=== PATIENT | female | born 1950 | race Caucasian/White ===

== ENCOUNTER 2022-02-16 10:40 | Emergency (ER) | payer MEDICARE, OTHER ==
[2022-02-16 12:04] LABS: Appearance CLOUDY (CLEAR); Bilirubin NEGATIVE (NEGATIVE); Glucose 250 mg/dL (NEGATIVE)
[2022-02-16 12:05] LABS: Ketones NEGATIVE (NEGATIVE); Protein,Urine Dip 100 (Negative); RBC LARGE Ery/ul (0-5)
[2022-02-16 12:06] LABS: Dipstick done @ ? MAIN LAB; Nitrite NEGATIVE (NEGATIVE); Urobilinogen 0.2 mg/dL (0-1)
[2022-02-16 12:39] LABS: Bacteria RARE /HPF (NEGATIVE); Epithelial Cells RARE /HPF (FEW); RBC >101 /HPF (0-2); Urine Cultured Indicated? YES; WBC >100 /HPF (0-5)
[2022-02-16 13:28] VITALS: O2SAT 98
[2022-02-16 14:23] VITALS: BP 158/70; PULSE 57
--- NOTE | 2022-02-16 14:38 | XRAY ---
Indication: Left lower quadrant pain. Difficulty urinating. Multiple contiguous axial images obtained through the abdomen and pelvis without contrast. Comparison: April 11, 2019. Lung bases again demonstrates tiny left lower lobe calcified granuloma. No infiltrate or effusion. Heart not enlarged. Noncontrasted stomach and bowel loops are nonobstructed. Appendix not seen. Again scattered descending and sigmoid diverticulosis. Junction descending and sigmoid colon now demonstrates mild diverticulitis. No free fluid/air. Again partial hysterectomy and cholecystectomy. Remaining liver, pancreas, spleen, adrenal glands, kidneys, ureters, and bladder are unremarkable for noncontrast exam. Again diffuse scattered vascular calcifications without AAA. Osseous structures intact again with mild degenerative changes throughout the thoracolumbar spine. Impression: 1. Again colonic diverticulosis. New finding mild diverticulitis junction descending and sigmoid colon without complications. 2. Chronic findings including arteriosclerotic disease, degenerative spondylosis, and left lower lobe calcified granuloma.
--- NOTE | 2022-02-16 14:58 | ERPHSYRPT ---
- History of Present Illness Time Seen by Provider: 02/16/22 11:00 Historian: patient Exam Limitations: no limitations Patient Subjective Stated Complaint: Pt states "I feel like I need to go to the bathroom but I only urinate a little" Triage Nursing Assessment: Pt presented alert and oriented X 3, skin pwd Pt ambulates with an upright steady gait, able to sepak in clear full sentences. no apparent respiratory distress. Physician History: Patient is a 71-year-old female presents to emergency department for evaluation of urinary frequency. Patient just completed a course of antibiotics for urinary tract infection. Patient had a follow-up UA which was clear. Patient now experiencing UTI symptoms. Additionally patient is complaining of diarrhea and mild left lower quadrant pain. Patient has had diverticulitis in the past and is concerned that she may be experiencing diverticulitis again. No trauma. No fever. No nausea or vomiting. No rash. Symptoms are moderate in intensity. No specific worsening or improving factors. Patient voices no other complaints or concerns at this time. Timing/Duration: yesterday Activities at Onset: none Quality: burning Abdominal Pain Onset Location: LLQ Pain Radiation: no radiation, scapula Severity of Pain-Current: mild Modifying Factors: Improves With: nothing Associated Symptoms: diarrhea, No fever/chills, No nausea, No shortness of breath, No vomiting Previous symptoms: same symptoms as today Allergies/Adverse Reactions: novacain Adverse Reaction (Intermediate, Uncoded 02/16/22 10:58) heart race Home Medications: Allopurinol 300 mg [Zyloprim 300 mg] 300 mg PO DAILY 02/16/22 [History] Atenolol 50 mg [Tenormin 50 mg] 50 mg PO DAILY 02/16/22 [History] Atorvastatin Calcium [Lipitor 20MG Tablet] 20 mg PO DAILY 02/16/22 [History] Lisinopril/Hydrochlorothiazide [Lisinopril-Hctz 20-12.5 mg Tab] 1 each PO BID 02/16/22 [History] Metformin HCl 500 mg [Glucophage 500 MG] 500 mg PO BIDWM 02/16/22 [History] glipiZIDE [Glipizide ER] 1 tab PO DAILY 02/16/22 [History] Hx Tetanus, Diphtheria Vaccination/Date Given: No Hx Influenza Vaccination/Date Given: Yes Hx Pneumococcal Vaccination/Date Given: No Immunizations Up to Date: Yes Travel Risk - International Travel Have you traveled outside of the country in past 3 weeks: No - Coronavirus Screening Are you exhibiting any of the following symptoms?: No Close contact with a COVID-19 positive Pt in past 14-21 Days: No - Vaccine Status Have you recieved a Covid-19 vaccination: Yes Control Panel Assembler: Moderna - Vaccination Dates Date of 2cond Vaccination (if applicable): 2020 - Review of Systems Constitutional: No Symptoms, No Fever, No Chills Eyes: No Symptoms Ears, Nose, & Throat: No Symptoms Respiratory: No Symptoms, No Cough, No Dyspnea Cardiac: No Symptoms, No Chest Pain, No Edema, No Syncope Abdominal/Gastrointestinal: No Symptoms, No Abdominal Pain, No Nausea, No Vomiting, No Diarrhea Genitourinary Symptoms: No Symptoms, No Dysuria Musculoskeletal: No Symptoms, No Back Pain, No Neck Pain Skin: No Symptoms, No Rash Neurological: No Symptoms, No Dizziness, No Focal Weakness, No Sensory Changes Psychological: No Symptoms Endocrine: No Symptoms Hematologic/Lymphatic: No Symptoms Immunological/Allergic: No Symptoms All Other Systems: Reviewed and Negative - Past Medical History Pertinent Past Medical History: Yes Neurological History: Migraines Cardiac History: High Cholesterol, Hypertension Endocrine Medical History: Diabetes Type II - Past Surgical History Past Surgical History: Yes - Social History Smoking Status: Never smoker Exposure to second hand smoke: No Drug Use: none Patient Lives Alone: No - Nursing Vital Signs Nursing Vital Signs: Initial Vital Signs Temperature 97.6 F 02/16/22 10:52 Pulse Rate 80 02/16/22 10:52 Respiratory Rate 20 02/16/22 10:52 Blood Pressure 186/94 02/16/22 10:52 O2 Sat by Pulse Oximetry 100 02/16/22 10:52 Pain Scale Pain Intensity 0 - Physical Exam General Appearance: no apparent distress, alert Eye Exam: PERRL/EOMI, eyes nml inspection Ears, Nose, Throat Exam: normal ENT inspection, TMs normal, pharynx normal, moist mucous membranes Neck Exam: normal inspection, non-tender, supple, full range of motion Respiratory Exam: normal breath sounds, lungs clear, airway intact, No resp iratory distress Cardiovascular Exam: regular rate/rhythm, normal heart sounds, normal peripheral pulses Gastrointestinal/Abdomen Exam: soft, normal bowel sounds, No tenderness, No mass, No guarding Back Exam: normal inspection, normal range of motion, No CVA tenderness, No vertebral tenderness Extremity Exam: normal inspection, normal range of motion, pelvis stable Neurologic Exam: alert, oriented x 3, cooperative, normal mood/affect, nml cerebellar function, sensation nml, No motor deficits Skin Exam: normal color, warm, dry SpO2 Interpretation: normal SpO2: 98 O2 Delivery: Room Air - Course Nursing assessment & vital signs reviewed: Yes - CT Exams Abdomen/Pelvis CT Interpretation: Tele-radiologist Report (CT abdomen pelvis reveals lung granuloma, diverticulosis with mild diverticulitis, diffuse scattered vascular calcifications with spine arthritis.) Ordered Tests: Active Orders 24 hr Category Date Time Status ABDOMEN AND PELVIS W/0 CONTRAS [CT] Stat Exams 02/16/22 12:21 Completed CULTURE,URINE Stat Lab 02/16/22 Received UA W/RFX CULTURE Stat Lab 02/16/22 Completed Lab/Rad Data: Laboratory Results 02/16/22 Range/Units Unknown Urinalys Dipstick Clnc MAIN LAB Urine Color REGINA (YELLOW) Urine Appearance CLOUDY (CLEAR) Urine pH 7.0 (5-6) Ur Specific Lima 1.020 (1.005-1.025) POC Urine Protein Conf 100 (Negative) Urine Ketones NEGATIVE (NEGATIVE) Urine Nitrite NEGATIVE (NEGATIVE) Urine Bilirubin NEGATIVE (NEGATIVE) Urine Urobilinogen 0.2 (0-1) mg/dL Urine Leukocytes MODERATE (NEGATIVE) Urine WBC (Auto) >100 (0-5) /HPF Urine RBC (Auto) >101 (0-2) /HPF U Epithel Cells (Auto) RARE (FEW) /HPF Urine Bacteria (Auto) RARE (NEGATIVE) /HPF Urine RBC LARGE (0-5) Too/ul Ur Culture Indicated? YES Urine Glucose 250 (NEGATIVE) mg/dL - Progress Progress: improved Progress Note: Work-up reveals a urinary tract infection as well as a mild diverticulitis. We will treat patient with Cipro Flagyl. Patient received her first oral dose of Cipro and Flagyl in our ED. A prescription for the same was forwarded to patient's pharmacy. Patient agrees to follow-up with primary care doctor within 48 hours for evaluation. Patient voices no other complaints or concerns at this time Portions of this note were created with voice recognition technology. There may be grammatical, spelling, punctuation or sound alike errors 02/16/22 15:05 Counseled pt/family regarding: lab results, diagnosis, need for follow-up, rad results - Departure Departure Disposition: Home Clinical Impression: Lung granuloma, Diverticulosis, Mild diverticulitis, Diffuse scattered vascular calcification, Arthritis of spine, Urinary tract infection Condition: Stable Critical Care Time: No Referrals: JAVI CACERES MD [Primary Care Provider] - Follow up/PCP as directed Additional Instructions: Discharge/Care Plan LILY YBARRA was seen on 02/16/22 in the Emergency Room. The patient was counseled regarding Diagnosis,Lab results, Imaging studies, need for follow up and when to return to the Emergency Room. Prescriptions given: Discharge Note I have spoken with the patient and/or caregivers. I have explained the patient's condition, diagnosis and treatment plan based on the information available to me at this time. I have answered the patient's and/or caregiver's questions and add ressed any concerns. The patient and/or caregivers have as good understanding of the patient's diagnosis, condition and treatment plan as can be expected at this point. The vital signs have been stable. The patient's condition is stable and appropriate for discharge from the emergency department. The patient will pursue further outpatient evaluation with the primary care physician or other designated or consulting physician as outlined in the discharge instructions. The patient and/or caregivers are agreeable to this plan of care and follow-up instructions have been explained in detail. The patient and/or caregivers have received these instruction. The patient/and or caregivers are aware that any significant change in condition or worsening of symptoms should prompt an immediate return to this or the closest emergency department or call 911. Prescriptions: Ciprofloxacin [Cipro 500 MG] 500 mg PO BID 7 Days #14 tablet Metronidazole 500 mg [Flagyl 500 MG] 500 mg PO TID #21 tablet
[2022-02-16] MEDS ORDERED: Flagyl 500 MG PO ONE (15:04)
[2022-02-16] MEDS ORDERED: Cipro 500 MG ONE (15:28)
[2022-02-16] MEDS ORDERED: Flagyl 500 MG ONE (15:28)
[2022-02-17] MEDS ORDERED: Cipro 500 MG PO SCH (10:00)
== END 2022-02-16 15:41 | disposition home or self-care (01) ==
LOC: ED 10:40
DX: N39.0 Urinary tract infection, site not specified (principal); J84.10 Pulmonary fibrosis, unspecified; K57.90 Diverticulosis of intestine, part unspecified, without perforation or abscess without bleeding; K57.92 Diverticulitis of intestine, part unspecified, without perforation or abscess without bleeding; R93.5 Abnormal findings on diagnostic imaging of other abdominal regions, including retroperitoneum; M47.9 Spondylosis, unspecified; R35.0 Frequency of micturition; R19.7 Diarrhea, unspecified; R10.32 Left lower quadrant pain; E78.5 Hyperlipidemia, unspecified; I10 Essential (primary) hypertension; E11.9 Type 2 diabetes mellitus without complications; Z79.84 Long term (current) use of oral hypoglycemic drugs; Z79.899 Other long term (current) drug therapy
CPT/HCPCS: 74176; 81015; 87086; 99284; A9270-GY